=== PATIENT | male | born 1955 | race Caucasian/White ===

== ENCOUNTER 2025-02-11 09:14 | Day surgery (SDC) | payer MEDICARE, BC, SELFPAY ==
--- NOTE | 2025-02-11 08:07 | ITS.CL.CATH ---
Loan Collector - Catheterization
Cardiac Catheterization
Procedure Report:
LEFT HEART CATHETERIZATION
Date of Procedure: February 11, 2025
Referring: Lawrence Jeffries MD
PROCEDURES:
1. Left heart catheterization, coronary angiogram.
2. Moderate sedation.
INDICATION: Jose is a 69-year-old gentleman with past medical history of multivessel coronary disease by cath in 2017 with diffuse three-vessel coronary artery disease and multiple borderline lesions by FFR including left main, ramus intermedius,
mid LAD and mid RCA with subtotal distal RCA, prediabetes, hypertension, hyperlipidemia, CKD stage IIIb with baseline creatinine of 1.5 with an outpatient abnormal stress test showing a dense inferior scar and area of apical scar and ischemia with
LVEF on gated imaging of 33% being referred for left heart catheterization to rule out obstructive CAD.
ACCESS: Right radial artery, 6Fr. sheath, under US guidance.
HEMODYNAMICS : (mmHg)
AO (s/d) : [ ]
LVEDP : [ ]
No significant gradient across the aortic valve to suggest aortic stenosis.
CORONARY FINDINGS
Dominance: Right
Left Main Trunk (LMT): Large caliber vessel that gives rise to the LAD and LCx branches and is free of angiographic disease.
Left Anterior Descending Artery (LAD): Large caliber vessel that gives off * major diagonal branches as it courses along the anterior inter-ventricular groove before wrapping around the cardiac apex. The LAD and its branches are free of
angiographic disease.
Left Circumflex Artery (LCx): Large caliber vessel that gives off * major obtuse marginal (OM) branches as it courses along the atrio-ventricular (AV) groove. The LCx and its branches are free of angiographic disease.
Right Coronary Artery (RCA): Large caliber dominant vessel that gives rise to the posterior descending artery (RPDA) and postero-lateral ventricular (RPLV) branches distally. The RCA and its branches are free of angiographic disease.
SEDATION: [ ] minutes of procedural sedation was utilized. IV Midazolam and IV Fentanyl were administered. An independent medical esthetician was present to assist with and help manage the patient's level of consciousness and physiologic status.
RADIATION SUMMARY: Fluoro Time (min): [ ], Dose (mGy): [ ], DAP (Gy.cm2) : [ ]
Closure Device: There were no immediate intra-procedural complications. The sheath was pulled in the slab lifting supervisor and a vascular-band applied to the right wrist for radial artery hemostasis using the patent hemostasis technique.
CONCLUSIONS
[ ]
RECOMMENDATIONS
1. Wean radial band per protocol. Monitor right hand perfusion and for bleeding from the radial site following removal of the vascular-band following trans-radial access.
2. Continue aggressive medical therapy and risk factor modification for secondary CAD prevention.
3. Hydrate with normal saline to mitigate the risk of contrast-induced acute kidney injury.
4. Follow-up with
Copy to: Lawrence Jeffries MD (education finance processor) and Bean Calles (PCP)
Dianna Sharpe MD, [facility], [facility]
[2025-02-11 09:54] VITALS: BP 143/73
[2025-02-11 10:33] VITALS: BMI 25.2
[2025-02-11] MEDS: NSS 1000 IV (10:50)
--- NOTE | 2025-02-11 15:07 | PTCARENOTE ---
Patient arrived at 10:00 and procedure delayed. Patient decided no longer wants to wait for procedure. [employer] made aware. Patient to be rescheduled. IV taken out and patient discharged home
== END 2025-02-11 15:09 | disposition home or self-care (01) ==
LOC: CATH 09:14
PROVIDERS: ATTENDING PHYSICIAN Internal Medicine Interventional Cardiology; FAMILY PHYSICIAN Internal Medicine; OTHER PHYSICIAN Internal Medicine Cardiovascular Disease
DX: I12.9 Hypertensive chronic kidney disease with stage 1 through stage 4 chronic kidney disease, or unspecified chronic kidney disease (principal); E78.5 Hyperlipidemia, unspecified; I25.10 Atherosclerotic heart disease of native coronary artery without angina pectoris; Z53.20 Procedure and treatment not carried out because of patient's decision for unspecified reasons; N18.32 Chronic kidney disease, stage 3b
CPT/HCPCS: 93005

== ENCOUNTER 2025-02-18 05:53 | Day surgery (SDC) | payer MEDICARE, BC, SELFPAY ==
[2025-02-18] VITALS (16 sets, daily range): BP systolic 107–199; BP diastolic 58–74; BMI 26.0
[2025-02-18] MEDS: LOW STRENGTH ASPIRIN 81 MG PO (06:59)
[2025-02-18] MEDS: NSS 233 ML IV (07:00)
[2025-02-18 08:39] LABS: ACT-LR - POC 281 Seconds (116-155)
--- NOTE | 2025-02-18 08:48 | ITS.CL.CATH ---
Tobacco Wetter - Catheterization
Cardiac Catheterization
Procedure Report:
LEFT HEART CATHETERIZATION
Date of Procedure: February 11, 2025
Referring: Lawrence Jeffries MD
PROCEDURES:
1. Left heart catheterization, coronary angiogram.
2. Moderate sedation.
3. Intravascular ultrasound of distal left main.
4. Functional physiologic testing with IFR of mid LAD.
5. Functional physiologic testing with IFR of proximal ramus intermedius artery.
6. Functional physiologic testing with IFR of proximal left circumflex.
INDICATION: Jose is a 69-year-old gentleman with past medical history of multivessel coronary disease by cath in 2017 with diffuse three-vessel coronary artery disease and multiple borderline lesions by FFR including left main, ramus intermedius,
mid LAD and mid RCA with subtotal distal RCA, prediabetes, hypertension, hyperlipidemia, CKD stage IIIb with baseline creatinine of 1.5 with an outpatient abnormal stress test showing a dense inferior scar and area of apical scar and ischemia with
LVEF on gated imaging of 33% being referred for left heart catheterization to rule out obstructive CAD.
ACCESS: Right radial artery, 6Fr. sheath, under US guidance.
HEMODYNAMICS : (mmHg)
AO (s/d) : 106/54
LVEDP : 10
No significant gradient across the aortic valve to suggest aortic stenosis.
CORONARY FINDINGS: Moderate to severely tortuous coronary arteries
Dominance: Right
Left Main Trunk (LMT): Large caliber vessel that gives rise to the LAD, RI and LCx branches and is free of angiographic disease. Distal left main has eccentric, calcified 30 to 40% stenosis. Intravascular ultrasound was performed with minimal
luminal area greater than 6 mm2 (8.2mm2)
Left Anterior Descending Artery (LAD): Large caliber vessel that gives off 2 major diagonal branches as it courses along the anterior inter-ventricular groove before wrapping around the cardiac apex. The mid LAD has a 70 to 75% eccentric stenosis
at the level of the takeoff of a medium to large caliber D2. iFR distal to this lesion is positive at 0.82.
Ramus Intermedius (RI): The ramus intermedius branch is a medium caliber vessel that is moderate to severely tortuous with diffuse up to 50 to 60% stenosis in the proximal portion with IFR indeterminate at 0.91
Left Circumflex Artery (LCx): Large caliber vessel that gives off 2 major obtuse marginal (OM) branches as it courses along the atrio-ventricular (AV) groove. Proximal left circumflex has diffuse 50 to 60% stenosis with IFR negative at 0.92
Right Coronary Artery (RCA): Large caliber dominant vessel that gives rise to the posterior descending artery (RPDA) and postero-lateral ventricular (RPLV) branches distally. Mid RCA has chronic subtotal occlusion with [id number] collaterals.
By report, this seems unchanged compared to prior heart catheterization from 2017.
IVUS OF LEFT MAIN: Given the eccentric calcified distal left main plaque which was about 30 to 40%, decision was made to make sure this was not obstructive. We used a Bidstalk Bailey eye IVUS catheter and assess the distal left main. The minimal
luminal area at the area with no significant plaque is 8.2 mm�. We then decided to proceed with functional physiologic testing of the mid LAD, proximal ramus intermedius artery and the proximal left circumflex arteries as noted below.
HEMODYNAMIC ASSESSMENT OF THE MID LAD, RAMUS INTERMEDIUS, LEFT CIRCUMFLEX WITH A Paddle ([employer]) OMNI WIRE: The origin of the left coronary artery was cannulated with a 6 Fr EBU 3.5 guide catheter. Intravenous heparin was administered and the ACT was
followed during the procedure. Two hundred micrograms of intracoronary nitroglycerin was given through the guide catheter. A Wimberley Omni wire was advanced to the guide catheter tip and normalized just outside the guide catheter The Omni wire was
then carefully manipulated across the stenosis in the mid LAD with the iFR below the ischemic threshold serially measuring 0.82, 0.84, 0.84. The Omni wire was then pulled back to the guide catheter where the Pd/Pa measured 1.0 confirming no
baseline drift in pressure readings. We then carefully manipulated the wire across the stenosis in the proximal left circumflex with the iFR above the ischemic threshold measuring 0.92, 0.92, 0.93. The Omni wire was then pulled back to the guide
catheter where the Pd/Pa measured 1.0 confirming no baseline drift in pressure readings. We then carefully manipulated the wire across the stenosis in the proximal ramus intermedius with the iFR in the indeterminate range measuring 0.91 x 3.
SEDATION: 47 minutes of procedural sedation was utilized. IV Midazolam and IV Fentanyl were administered. An independent medical office receptionist was present to assist with and help manage the patient's level of consciousness and physiologic status.
RADIATION SUMMARY: Fluoro Time (min): 12.8, Dose (mGy): 779, DAP (Gy.cm2) : 30.6
Closure Device: There were no immediate intra-procedural complications. The sheath was pulled in the labor operator and a vascular-band applied to the right wrist for radial artery hemostasis using the patent hemostasis technique.
CONCLUSIONS
1. Multivessel coronary artery disease.
2. Intravascular ultrasound was performed with minimal luminal area greater than 6 mm2 (MLA is 8.2mm2).
3. The mid LAD has a 70 to 75% eccentric stenosis at the level of the takeoff of a medium to large caliber D2. iFR distal to this lesion is positive at 0.82.
4. The ramus intermedius branch is a medium caliber vessel that is moderate to severely tortuous with diffuse up to 50 to 60% stenosis in the proximal portion with IFR indeterminate at 0.91.
5. Proximal left circumflex has diffuse 50 to 60% stenosis with IFR negative at 0.92
6. Normal LVEDP at 10 mmHg
RECOMMENDATIONS
1. Wean radial band per protocol. Monitor right hand perfusion and for bleeding from the radial site following removal of the vascular-band following trans-radial access.
2. Lengthy discussion was had with outpatient restaurant district manager as well as patient. In the setting of no anginal symptoms with no prognostic modifying lesions, decision to continue pursuing aggressive medical therapy for now. If he were to develop
symptoms, we would reassess and rule out any progression of distal left main/proximal left circumflex disease versus pursuing mid LAD plus minus D2 intervention
3. Hydrate with normal saline to mitigate the risk of contrast-induced acute kidney injury.
4. Follow-up with Dr. Lawrence Jeffries,
Copy to: Lawrence Jeffries MD (restaurant district manager) and Bean Calles (PCP)
Dianna Sharpe MD, FAC, [facility]
[2025-02-18 11:08] LABS: ACT-LR - POC 261 Seconds (116-155)
[2025-02-18 11:08] LABS: ACT-LR - POC 239 Seconds (116-155)
== END 2025-02-18 12:30 | disposition home or self-care (01) ==
LOC: CATH 05:53
PROVIDERS: ATTENDING PHYSICIAN Internal Medicine Interventional Cardiology; FAMILY PHYSICIAN Internal Medicine; OTHER PHYSICIAN Internal Medicine Cardiovascular Disease
DX: I25.10 Atherosclerotic heart disease of native coronary artery without angina pectoris (principal); I10 Essential (primary) hypertension; E78.5 Hyperlipidemia, unspecified; R73.03 Prediabetes
CPT/HCPCS: 92978; 93799 ×3; 99152; 99153; 85347; 93458; C1753; C1769; C1894; Q9967